=== PATIENT | female | born 1955 | race Caucasian/White ===

== ENCOUNTER → 2017-04-18 | Outpatient (CLI) | payer BC ==
[~2017-04-18] MED LIST: ADVAIR 250-501 EAC1 IH; CARAFATE1 G PO; CELEBREX PO; FIRST-LANSO3 MG/1 ML; HYDROCHLOROTHIA25 MG PO; JOLIVETTE PO; LANSOPRAZOLE30 M2 PO; LOSARTAN POTASS50 MG PO; LOSARTAN-HCTZ1 EACH PO; METFORMIN HCL500 M1 PO; NAPROSYN-EC500 M1 PO; NEXIUM PO; NORFLEX100 M1 PO; PHENERGAN25 MG PO; PRAVASTATIN SOD40 MG PO; SINGULAIR PO; VERAMYST10 GM NS; VITAMIN E400 UNI1 PO; ZYRTEC10 M2 PO
--- NOTE | ~2017-04-18 | MY29 ---
[facility] A Service of [facility] / [facility] RADIOLOGY TEXT RESULTS PATIENT: ANGELITA HAIR LOCATION: [facility] : 59 UNIT #: [id number] AGE: [address]: Sylvie Shook MD SEX: F ORDER DR: [id number] [facility] [address] [place], [place] [address] [id number] O MR#: [id number] Acc #: [id number] NAME: ANGELITA HAIR : 1955 SEX: F STUDY DATE/TIME: 04/18/2017 9:32 UNIT: [facility] ROOM: STUDY DESCRIPTION: MY [facility] SCREENING W/ CAD BILAT Attending Physician: Sylvie Shook M.D. Ordering Physician: Sylvie Shook M.D. Primary Care Physician: Sylvie Shook M.D. MEDICAL IMAGING REPORT This report is preliminary unless electronic signature is present EXAM Digital screening mammogram, 04/18/2017 HISTORY 62-year-old woman no risk elevation. Prior left breast needle core biopsy. Annual screening. COMPARISON Mammograms date to 04/27/2007 with most recent 04/12/2016. FINDINGS Digital imaging of each breast was completed utilizing screening protocol. Review includes FDA-approved CAD device. Breast parenchyma is heterogeneously dense and stable. Two subcentimeter circumscribed nodules mid outer left breast are again noted and stable. There is no interval occurring mass or suspicious microcalcifications and no architectural deformity. IMPRESSION Stable benign mammogram. Annual screening recommended. Patients over the age of 40 are entered into a reminder system with target due date for the next mammogram. A result letter will also be sent to the patient. BIRADS: 2 Benign Finding Dictated by... Thiago Proctor M.D. THIS IS AN ELECTRONICALLY VERIFIED REPORT Thiago Proctor M.D. at 04/18/2017 3:13 PM [facility] A Service of [facility] / [facility] RADIOLOGY TEXT RESULTS PATIENT: ANGELITA HAIR LOCATION: [facility] : 59 UNIT #: [id number] AGE: [address]: Sylvie Shook MD SEX: F ORDER DR: MEHNAZ/rebecca TD: 04/18/2017 14:38 JOB #: [id number] MEDICAL IMAGING REPORT Page 1 of 1 COPY
== END | disposition home or self-care (01) ==
LOC: CWCC 09:07
DX: Z12.31 Encounter for screening mammogram for malignant neoplasm of breast (principal)
CPT/HCPCS: G0202